=== PATIENT | male | born 1965 | race Two or more races ===

== ENCOUNTER 2020-02-04 21:24 | Inpatient (IN) | payer MEDICARE, OTHER ==
[~2020-02-04] VITALS: Ht 185.4 cm; Wt 79.4 kg
--- NOTE | 2020-02-04 22:10 | NUR ---
KITCHEN AIDE NOTES, RECEIVED DIRECT ADMIT PATIENT FROM [facility] UNDER MEDICAL SERVICES OF DR WADE AND TINY WITH ADMITTING DX PSYCHOSIS NOS, HE STATES HE IS BIPOLAR AND DENIES ANY ADDITIONAL MEDICAL CONDITION, ON 5150 HOLD 72 HRS FOR GRAVELY DISABLE, PATIENT DENIES SUICIDAL THOUGH, SUICIDAL IDEATION OR THOUGHTS OF HARMING SELF AT THIS TIME, A/O X4, VERBAL RESPONSIVE, BREATHING EVEN AND UNLABORED, NO S/S OF ANY SOB/ACUTE DISTRESS NOTED AT THIS TIME NO DISRUPTIVE BEHAVIOR EXHIBITED, CALM AND COOPERATIVE WITH CARE, AT RA, SKIN INTACT, AFEBRILE AT THIS TIME, NO SHARP OR COMPROMISED ITEMS IN ROOM, CONTRABAND CHECK DONE, WILL CONTINUE TO MONITOR CLOSELY.
--- NOTE | 2020-02-04 22:10 | NUR ---
RN NOTES, VS UPON ADMISSION 97.6, 71, 95% RA, 18, 114/58, BLOOD SUGAR 94MG/DL, AFEBRILE, NO S/S OF SOB, PAIN OR ANY ACUTE DISTRESS NOTED, DENIES PAIN AND DISCOMFORT.
[2020-02-04] MEDS ORDERED: BLOOD SUGAR DIAGNOSTIC 1 EACH STRIP IN ONE (22:30)
[2020-02-04] MEDS ORDERED: MAGNESIUM HYDROXIDE 30 ML UDC PO PRN (22:30)
[2020-02-04] MEDS: TEMAZEPAM 7.5 MG CAPSULE PO PRN (23:10)
[2020-02-05 00:21] VITALS: BP 114/58
--- NOTE | 2020-02-05 06:41 | NUR ---
RN NOTES, NO SIGNIFICANTS CHANGE IN CONDITION, PATIENT COMPLIAN WITH CARE, NO DISRRUPTIVE BEHAVIOR EXHIBITED, WILL CONTINUE TO MAINTOP CLOSELY.
[2020-02-05 08:00] VITALS: BP 134/95
[2020-02-05 08:01] LABS: ALBUMIN 3.4 g/dL (3.4-5.0); BILIRUBIN,TOTAL 0.3 mg/dL (0.2-1.0); CALCIUM, SERUM 8.6 mg/dL (8.5-10.1); CHOLESTEROL 114 mg/dL (<200); CREATININE 0.8 mg/dL (0.6-1.3); HDL CHOLESTEROL 39 mg/dL (40-60); LDL 74 mg/dL (0-99); TOTAL PROTEIN, SERUM 6.7 g/dL (6.4-8.2); TRIGLYCERIDES 36 mg/dL (30-150)
[2020-02-05] MEDS: LORAZEPAM 0.5 MG TABLET PO PRN ×2 (08:13→16:22)
[2020-02-05] MEDS: risperiDONE 1 MG TABLET PO SCH ×2 (10:10→21:05)
[2020-02-05] MEDS: GABAPENTIN 100 MG CAPSULE PO SCH ×2 (12:30→16:22)
--- NOTE | 2020-02-05 15:33 | NUR ---
Individual Counseling: Goal: Patient will meet with SW today at 1:00 pm for individual counseling. Intervention: SW facilitated counseling session with patient regarding Positive Coping Mechanisms. SW explored what positive coping mechanisms the pt. has used in the past. SW commended patient for being vulnerable and informed him that crying is a positive coping mechanism. SW educated patient on Self-Soothing Techniques, Daily Affirmations, and Mindfulness. Response: Patient was agreeable to participating in individual counseling session. The patient was alert, pleasant, made proper eye contact and remained cooperative throughout counseling session. The patient stated in the past he has negatively coped with his problems by drinking. Pt. stated a positive coping mechanism he has used in the past is venting by talking to his parents over the phone and he enjoys reading. Pt. became tearful when discussing his relationship with his parents. Patient stated that he is willing to try mindfulness breathing exercise as a grounding technique in the future.
[2020-02-05 16:00] VITALS: BP 125/75
[2020-02-05] MEDS: ACETAMINOPHEN 325 MG TABLET PO PRN (19:32)
--- NOTE | 2020-02-05 19:33 | NUR ---
GPS-RN NOTE: C/O HEADACHE PATIENT C/O HEADACHE ON A PAIN SCALE OF 3/10. ADMINISTERED ACETAMINOPHEN 650MG PO ORDERED. WILL CONTINUE TO MONITOR.
[2020-02-05 20:07] VITALS: BP 129/72
[2020-02-05] MEDS: TEMAZEPAM 7.5 MG CAPSULE PO PRN (21:41)
[2020-02-06] MEDS: ACETAMINOPHEN 325 MG TABLET PO PRN (05:38)
[2020-02-06 06:25] LABS: BASOPHILS # (AUTO) 0.1 /CMM (0.0-0.2); BASOPHILS % (AUTO) 1.1 % (0.0-2.0); EOSINOPHILS % (AUTO) 4.5 % (0.0-6.0); HEMATOCRIT 43 % (39-51); HEMOGLOBIN 14.6 g/dL (13.5-17.5); LYMPHOCYTES # (AUTO) 1.8 /CMM (0.8-4.8); LYMPHOCYTES % (AUTO) 25.2 % (20.0-44.0); MEAN CORPUSCULAR HGB CONC 34 g/dl (31.0-36.0); MEAN CORPUSCULAR VOLUME 94 fL (80-96); MONOCYTES # (AUTO) 0.8 /CMM (0.1-1.30); MONOCYTES % (AUTO) 10.9 % (2.0-12.0); NEUTROPHILS # (AUTO) 4.2 /CMM (1.8-8.9); NEUTROPHILS % (AUTO) 58.3 % (43.0-81.0); PLATELET COUNT (AUTO) 310 /CMM (150-450); RED BLOOD CELL COUNT(AUTO) 4.59 MIL/uL (4.5-6.0); WHITE BLOOD COUNT (AUTO) 7.2 K/uL (4.3-11.0)
[2020-02-06 08:00] VITALS: BP 136/87
[2020-02-06] MEDS: GABAPENTIN 100 MG CAPSULE PO SCH ×3 (08:20→16:08)
[2020-02-06] MEDS: risperiDONE 1 MG TABLET PO SCH ×2 (08:20→21:02)
[2020-02-06] MEDS: LORAZEPAM 0.5 MG TABLET PO PRN (09:52)
--- NOTE | 2020-02-06 09:54 | NUR ---
GPS/RN-NOTES PATIENT C/O ANXIETY AND SHACKING DR. FRANKS IN THE UNIT AND AWARE. ATIVAN 0.5MG P.O GIVEN PRN ORDER. WILL CONT. MONITORING FOR SAFETY AND BEHAVIOR.
--- NOTE | 2020-02-06 10:20 | NUR ---
GPS/RN-NOTES PATIENT IN THE ROOM CALM,NO ACUTE DISTRESS NOTED.
[2020-02-06] MEDS: BENZTROPINE MESYLATE (1 MG) 1 MG TABLET PO SCH ×2 (11:12→16:08)
--- NOTE | 2020-02-06 12:30 | NUR ---
FAMILY CONTACT: SW contacted pts mother Kaye ([phone]) and left a voicemail for call back to discuss pts discharge and treatment plan.
--- NOTE | 2020-02-06 12:47 | NUR ---
INITIAL DISCHARGE PLAN: Pt may need placement. Pt states he wishes to go to a sober living in [place], [place]. YEIMI will help form a safe and proper discharge in collaboration with .
--- NOTE | 2020-02-06 14:23 | NUR ---
SUBSTANCE ABUSE INTERVENTION: SW conducted substance abuse intervention and discussed pts alcohol abuse. Per pt, he has been sober for 10 years and drank 2 days ago due to the coronavirus. Pt refused substance abuse referrals and stated being in the hospital is like being in treatment. Pt stated he wishes to be discharged to a sober living facility.
--- NOTE | 2020-02-06 14:30 | NUR ---
Dr. De León made aware that pt. with MRSA on logan and with order.
--- NOTE | 2020-02-06 14:59 | NUR ---
FAMILY CONTACT: SW received a call from pts mother Kaye ([phone]) who provided SW with collateral information. Mom states that pt is currently homeless juan to his alcohol abuse. Mother states that pt has not been sober for 10 years and states that pt had been drinking 6 (40oz) beers a day and blacking out. She states that pt needs inpatient treatment but knows that pt is in denial and does not admit to his alcohol abuse. Mother states that pt is not able to return to her home and states that pt needs a sober living. YEIMI will help form a safe and proper discharge in collaboration with .
--- NOTE | 2020-02-06 15:51 | NUR ---
FAMILY CONTACT: SW received a call from pts mother Kaye ([phone]) to provide SW with the name and furniture salesperson for a [facility] [phone].
[2020-02-06 16:00] VITALS: BP 131/79
--- NOTE | 2020-02-06 16:01 | NUR ---
SOBER LIVING: YEIMI contacted Candy, academic administrator at [facility] [phone]. Who stated she will accept pt. She stated that she has 2 beds available and states that she wishes to speak to pt regarding his sobriety and rules. YEIMI stated that she will provide pt with her contact number.
--- NOTE | 2020-02-06 16:20 | NUR ---
INDIVIDUAL MEETING: YEIMI provided pt with contact information for Candy, nursing home administrator at [facility] [phone]. YEIMI prompted pt to call Candy to reserve a bed.
[2020-02-06] MEDS: MAG HYDROX/AL HYDROX/SIMETH 30 ML UDC PO PRN (19:50)
--- NOTE | 2020-02-06 19:51 | NUR ---
GPS-RN NOTE: MAALOX 30ML PO GIVEN FOR INDIGESTION. WILL CONTINUE TO MONITOR.
[2020-02-06 20:42] VITALS: BP 131/66
[2020-02-06 20:48] VITALS: BP 130/81
[2020-02-06] MEDS: MUPIROCIN OINT 2% 22 GM TUBE SCH (21:31)
[2020-02-06] MEDS: TEMAZEPAM 7.5 MG CAPSULE PO PRN (22:46)
--- NOTE | 2020-02-06 22:46 | NUR ---
GPS-RN NOTE: INSOMNIA PATIENT C/O INABILITY TO SLEEP. ADMINISTERED RESTORIL 7.5MG PO ORDERED PER PT'S REQUEST. WILL CONTINUE TO MONITOR FOR PATIENT'S SAFETY.
[2020-02-07 08:00] VITALS: BP 115/72
[2020-02-07] MEDS: MUPIROCIN OINT 2% 22 GM TUBE SCH ×2 (08:50→21:46)
[2020-02-07] MEDS: risperiDONE 1 MG TABLET PO SCH ×3 (09:00→17:33)
[2020-02-07] MEDS: GABAPENTIN 100 MG CAPSULE PO SCH ×3 (09:00→17:33)
[2020-02-07] MEDS: BENZTROPINE MESYLATE (1 MG) 1 MG TABLET PO SCH ×3 (09:00→17:33)
--- NOTE | 2020-02-07 09:07 | NUR ---
FAMILY CONTACT: SW received a call from pts mother Kaye ([phone]) stating that pt has informed her that he will be discharged on this present day, SW informed her that pt began refusing medication this morning and is currently not stable for discharge per MD's notes. SW explained legal hold process and also explained that MD may file for a medication capacity hearing if pt continues to refuse psychiatric medication. Mother stated that pt also called the sober living facility yesterday and stated the staffing administrator hung up the phone on him because pt is currently in the hospital. SW informed her that SW contacted the staffing administrator and informed her pt is currently hospitalized and stated that pt perhaps did not identify himself properly. Mother states that she believes pt was not able to communicate well with the staffing administrator and asked SW for assistance. SW stated that once pt is stable and ready for discharge SW will assist pt with making the phone call. Mother agreed and requested SW provide her updates as needed.
--- NOTE | 2020-02-07 09:07 | NUR ---
GPS/RN-NOTES PATIENT REFUSED ALL P.O MEDICATIONS DESPITE EXPLANATIONS RISK AND BENEFITS. STATED" I DON'T WANT TO TAKE MEDICATIONS TODAY,IT MAKE ME SICK", OFFERED X3.
--- NOTE | 2020-02-07 10:45 | NUR ---
GPS/RN-NOTES DR. FRANKS IN THE UNIT AND MADE AWARE OF PATIENT MEDICATION REFUSAL.
[2020-02-07] MEDS: LORAZEPAM 0.5 MG TABLET PO PRN (11:24)
--- NOTE | 2020-02-07 11:28 | NUR ---
GPS/RN-NOTES NOTED PATIENT ANGRY AND CURSING AT STAFF. ATIVAN OFFERED AND AGREED . ATIVAN 0.5MG P.O GIVEN PRN ORDER. WILL CONT. MONITORING FOR SAFETY AND BEHAVIOR.
--- NOTE | 2020-02-07 12:30 | NUR ---
GPS/RN-NOTES PATIENT IN THE ROOM SITTING IN BED, CALM,NO ACUTE DISTRESS NOTED.
[2020-02-07 16:00] VITALS: BP 128/83
[2020-02-07 20:49] VITALS: BP 112/71
[2020-02-08] MEDS: risperiDONE 1 MG TABLET PO SCH ×4 (07:43→20:08)
[2020-02-08] MEDS: ACETAMINOPHEN 325 MG TABLET PO PRN (07:43)
[2020-02-08 08:00] VITALS: BP 127/78
[2020-02-08] MEDS: GABAPENTIN 100 MG CAPSULE PO SCH ×3 (08:00→16:52)
[2020-02-08] MEDS: MUPIROCIN OINT 2% 22 GM TUBE SCH ×2 (08:00→21:12)
[2020-02-08] MEDS: BENZTROPINE MESYLATE (1 MG) 1 MG TABLET PO SCH ×4 (08:01→20:08)
[2020-02-08] MEDS: LORAZEPAM 0.5 MG TABLET PO PRN (08:55)
--- NOTE | 2020-02-08 08:55 | NUR ---
RN NOTE: PT ANXIOUS AND AGITATED. YELLING INTO PHONE. UNABLE TO BE REDIRECTED. TREMORS AND HYPERVERBAL. MEDICATED WITH ATIVAN. 0.5 MG PO FOR ANXIETY AND AGITATION
[2020-02-08 16:00] VITALS: BP 141/85
[2020-02-08 20:00] VITALS: BP 135/93
[2020-02-08] MEDS: MAG HYDROX/AL HYDROX/SIMETH 30 ML UDC PO PRN (20:50)
--- NOTE | 2020-02-08 20:50 | NUR ---
GPS RN NOTE: INDIGESTION PT. C/O INDIGESTION. ADMINISTERED MAALOX 30 ML PRN ORDERED. WILL CONTINUE TO MONITOR FOR SAFETY AND BEHAVIOR.
[2020-02-08] MEDS: TEMAZEPAM 7.5 MG CAPSULE PO PRN (22:44)
--- NOTE | 2020-02-08 22:44 | NUR ---
GPS RN NOTE; INSOMNIA PT. C/O UNABLE TO SLEEP AND REQUESTED SLEEPING PILL. ADMINISTERED RESTORIL 7.5 MG PO PRN ORDERED. WILL CONTINUE TO MONITOR FOR SAFETY AND BEHAVIOR
[2020-02-09 08:00] VITALS: BP 139/88
[2020-02-09] MEDS: GABAPENTIN 100 MG CAPSULE PO SCH ×3 (08:33→16:30)
[2020-02-09] MEDS: BENZTROPINE MESYLATE (1 MG) 1 MG TABLET PO SCH ×4 (08:33→19:38)
[2020-02-09] MEDS: risperiDONE 1 MG TABLET PO SCH ×4 (08:33→19:39)
[2020-02-09] MEDS: MUPIROCIN OINT 2% 22 GM TUBE SCH ×2 (08:36→21:15)
[2020-02-09] MEDS: ACETAMINOPHEN 325 MG TABLET PO PRN (12:08)
--- NOTE | 2020-02-09 12:08 | NUR ---
RN NOTE: PT C/O 01/02 HEADACHE. MEDICATED WITH TYLENOL PO PRN.
[2020-02-09 16:00] VITALS: BP 136/95
[2020-02-09 20:52] VITALS: BP 127/66
[2020-02-09] MEDS: TEMAZEPAM 7.5 MG CAPSULE PO PRN (21:57)
--- NOTE | 2020-02-09 21:57 | NUR ---
GPS RN NOTE: INSOMNIA PT. C/O UNABLE TO SLEEP AND REQUESTED SLEEPING PILL. ADMINISTERED RESTORIL 7.5 MG PO PRN ORDERED. WILL CONTINUE TO MONITOR FOR SAFETY AND BEHAVIOR
[2020-02-10] MEDS: ACETAMINOPHEN 325 MG TABLET PO PRN ×2 (05:12→14:26)
--- NOTE | 2020-02-10 05:12 | NUR ---
GPS RN NOTE: PAIN PT. C/O OF HEADACHE AND REQUESTED FOR TYLENOL. ADMINISTERED TYLENOL 650 MG PO PRN ORDERED. WILL CONTINUE TO MONITOR FOR SAFETY AND BEHAVIOR
[2020-02-10 08:00] VITALS: BP 132/79
[2020-02-10] MEDS: GABAPENTIN 100 MG CAPSULE PO SCH ×3 (08:09→16:18)
[2020-02-10] MEDS: risperiDONE 1 MG TABLET PO SCH ×4 (08:10→20:35)
[2020-02-10] MEDS: BENZTROPINE MESYLATE (1 MG) 1 MG TABLET PO SCH ×4 (08:10→20:35)
[2020-02-10] MEDS: MUPIROCIN OINT 2% 22 GM TUBE SCH ×2 (08:12→21:02)
[2020-02-10] MEDS: LORAZEPAM 0.5 MG TABLET PO PRN (10:52)
--- NOTE | 2020-02-10 10:52 | NUR ---
RN NOTE: PT C/O INCREASED ANXIETY. REQUESTING ATIVAN PRN. MEDICATED WITH ATIVAN 0.5 MG PO PRN.
[2020-02-10] MEDS: MAG HYDROX/AL HYDROX/SIMETH 30 ML UDC PO PRN (11:09)
--- NOTE | 2020-02-10 14:02 | NUR ---
FAMILY CONTACT: SW received a call from pts mother Kaye ([phone]) requesting discharge information. SW informed her that MD has ordered discharge as soon as pt is accepted to a sober living. Mother provided SW with another contact number for [facility] ([phone]) and stated that pt is able to transport himself via pubic transportation if needed.
--- NOTE | 2020-02-10 14:12 | NUR ---
SOBER LIVING: YEIMI contacted Pee, telecommunications administrator at [facility] ([phone]) and left a voicemail for callback.
--- NOTE | 2020-02-10 14:16 | NUR ---
[facility]: YEIMI contacted Candy, cognos bi administrator at [facility] [phone] who stated she would contact her unix manager to see if there is still a bed available for pt, she will return call to YEIMI. Addendum: 02/10/20 at 1501 by MAYA JALLOH YEIMI received a call from Candy, who provided YEIMI with her managers contact information; Arnoldo [phone]. YEIMI called and left a voicemail for callback.
--- NOTE | 2020-02-10 14:26 | NUR ---
RN NOTE: PT C/O 12/02 OLIVE. REQUESTING TYLENOL. TYLENOL 650MIG PO ADMINISTERED.
--- NOTE | 2020-02-10 14:31 | NUR ---
Individual Counseling: This SW met with pt. at bedside to facilitate therapeutic milieu regarding patient's support system. The patient was receptive to meeting with SW. Per patient, his parents, Kaye and Margarito are very involved and supportive. Per patient, he is in communication with them. The patient discussed stressors that have affected his relationships. SW used reflective listening, and validation and discussed communication styles. Patient expressed he is well supported and looking forward to working on his relationships and also discharging to sober living facility. Patient will be invited to participate in future counseling session.
--- NOTE | 2020-02-10 15:02 | NUR ---
SOBER LIVING: SW contacted [facility] and spike with Lisandra [phone] who stated they require a 30 day sobriety for admission.
--- NOTE | 2020-02-10 15:22 | NUR ---
INDIVIDUAL MEETING: SW met with pt to inform him SW is attempting to find a bed for him at various sober livings. Pt stated that if SW is unable to find a place for him he wishes to be discharged to the streets and he will figure out where to go from there. SW stated that she will try to find a bed for him by tomorrow and pt agreed. Pt refused SNF placement.
[2020-02-10 16:00] VITALS: BP 133/84
--- NOTE | 2020-02-10 16:20 | NUR ---
SOBER LIVING: YEIMI received a call from Arnoldo, it infrastructure manager at [facility] [address] [place] [address] P: [phone] stating a bed has been reserved for pt. YEIMI facilitated over the phone interview with Arnoldo and pt. Pt accepted terms and conditions of house and will be discharged tomorrow 02/11/20 via public transportation.
--- NOTE | 2020-02-10 16:22 | NUR ---
FAMILY CONTACT: SW contacted pts mother Kaye ([phone]) to inform her pt will be discharging tomorrow to [facility] [address] [place] [address] P: [phone] via public transportation. Mother agreed to discharge plan.
[2020-02-10 20:15] VITALS: BP 149/90
[2020-02-10] MEDS: TEMAZEPAM 7.5 MG CAPSULE PO PRN (21:29)
--- NOTE | 2020-02-10 21:29 | NUR ---
GPS-RN NOTE: INSOMNIA PATIENT C/O INABILITY TO SLEEP. ADMINISTERED RESTORIL 7.5MG PO ORDERED PER PT'S REQUEST. WILL CONTINUE TO MONITOR FOR PATIENT'S SAFETY.
[2020-02-11] MEDS: ACETAMINOPHEN 325 MG TABLET PO PRN (06:21)
--- NOTE | 2020-02-11 06:23 | NUR ---
GPS-RN NOTE: C/O HEADACHE PATIENT C/O HEADACHE ON A PAIN SCALE OF 3/10. REQUESTED TYLENOL PRN. MEDICATED TYLENOL 650MG PO ORDERED. WILL CONTINUE TO MONITOR.
[2020-02-11] MEDS: BENZTROPINE MESYLATE (1 MG) 1 MG TABLET PO SCH (07:59)
[2020-02-11] MEDS: risperiDONE 1 MG TABLET PO SCH (07:59)
[2020-02-11 08:00] VITALS: BP 128/86
[2020-02-11] MEDS: GABAPENTIN 100 MG CAPSULE PO SCH (08:00)
[2020-02-11] MEDS: MUPIROCIN OINT 2% 22 GM TUBE SCH (09:25)
--- NOTE | 2020-02-11 10:15 | NUR ---
SKIMMER REVERBERATORY NOTE: 54 YEAR OLD MALE DISCHARE TO [facility] VIA PUBLIC TRANSPORTATION IN STABLE CONDITION. PT COMPLIANT WITH MEDICATIONS, COOPERATIVE WITH TREATMENT PLAN. PATIENT DENIES SI/HI AND INSTRUCTED TO GO TO THE CLOSEST ER IF DEVELOPING SI/HI. BEHAVIOR IMPROVED, PSYCHIATRIC TREATMENT PLANS MET, MEDICAL TREATMENT PLANS DEFERRED FOR CONTINUAL MONITORING. EDUCTED PT ABOUT AFTER CARE PLAN AND COPY PROVIDED. RETURNED PERSONAL BELONGINGS TO PATIENT. PRESCRIPTIONS CALLED TO LOCAL [facility]. MEDICATIONS RECONCILED WITH DR. POWERS AND DR FRANKS. PATIENT SIGNED DISCHARGE PAPERWORK. SKIN INTACT ON ADMIT AND DISCHARGE. PATIENT ID BAND REMOVED. PT EXICTED THE UNIT VIA AMBULATION AT 10:15
--- NOTE | 2020-02-11 10:47 | NUR ---
DISCHARGE NOTE: Pt was discharged via public transportation at 10:30am to [facility] [address] [place] [address] P: [phone]. Pts mother Kaye ([phone]) has been notified and agreed to discharge plan. Pts mood is euthymic with congruent affect. Pt denied visual/auditory hallucinations and denied suicidal/homicidal ideation. Pt will be following up with Psychiatrist: Dr. Vernon Nicholson Address: [address] [place] [address] on Monday02/14/20 at 10:00am and [employer] Web Developer: [facility] Address: [address] [place] [address] . Patient was provided referrals to address his alcohol use. Patient was referred to [facility] : [facility] Address: [address] [place] [address] . Pt also received homeless resources. The multidisciplinary exit care form was done, printed, signed, and given to the patient.
== END 2020-02-11 10:15 | disposition home or self-care (01) | DRG 885 ==
LOC: GPS 21:26
PROVIDERS: ADMIT Psychiatry & Neurology Psychosomatic Medicine
DX: F31.9 Bipolar disorder, unspecified (principal); Z87.891 Personal history of nicotine dependence; R73.9 Hyperglycemia, unspecified; F09 Unspecified mental disorder due to known physiological condition; F10.10 Alcohol abuse, uncomplicated; Z91.14 Patient's other noncompliance with medication regimen; F81.9 Developmental disorder of scholastic skills, unspecified; G47.00 Insomnia, unspecified
CPT/HCPCS: 36415; 80053-TC; 80061-TC; 82962-TC; 84443-TC; 85025-TC; 87081-TC

== ENCOUNTER 2025-01-14 18:47 | Inpatient (IN) | payer MEDICARE, OTHER ==
[~2025-01-14] VITALS: Ht 182.9 cm; Wt 94.8 kg
[2025-01-14 19:41] LABS: BASOPHILS # (AUTO) 0.1 K/uL (0.0-0.2); BASOPHILS % (AUTO) 0.6 % (0.0-2.0); EOSINOPHILS # (AUTO) 0.3 K/uL (0.0-0.7); EOSINOPHILS % (AUTO) 3.7 % (0.0-6.0); HEMATOCRIT 45 % (39-51); HEMOGLOBIN 14.9 g/dL (13.5-17.5); LYMPHOCYTES # (AUTO) 2.5 K/uL (0.8-4.8); LYMPHOCYTES % (AUTO) 29.6 % (20.0-44.0); MEAN CORPUSCULAR HEMOGLOBIN 29 PG (26.0-33.0); MEAN CORPUSCULAR HGB CONC 33 g/dl (31.0-36.0); MEAN CORPUSCULAR VOLUME 88 fL (80-96); MONOCYTES # (AUTO) 0.8 K/uL (0.1-1.30); NEUTROPHILS # (AUTO) 4.8 K/uL (1.8-8.9); NEUTROPHILS % (AUTO) 57.1 % (43.0-81.0); PLATELET COUNT (AUTO) 216 K/uL (150-450); RED BLOOD CELL COUNT(AUTO) 5.07 MIL/uL (4.5-6.0); RED CELL DISTRIBUTION WIDTH 13.5 % (11.5-15.0); WHITE BLOOD COUNT (AUTO) 8.5 K/uL (4.3-11.0)
[2025-01-14 19:58] LABS: CALCIUM, SERUM 9.8 mg/dL (8.5-10.1); CARBON DIOXIDE 26 mmol/L (21-32); CHLORIDE 102 mmol/L (98-107); CREATININE 0.8 mg/dL (0.6-1.3); GLUCOSE 96 mg/dL (74-106); SODIUM SERUM 137 mmol/L (136-145); UREA NITROGEN, BLOOD 13 mg/dL (7-18)
[2025-01-14 20:05] LABS: ACETAMINOPHEN 0 ug/ml (10-30); ALANINE AMINOTRANSFERASE 27 U/L (12-78); ALBUMIN 3.8 g/dL (3.4-5.0); ALCOHOL, BLOOD < 3 mg/dL (0-10); ALKALINE PHOSPHATASE 69 U/L (46-116); ASPARTATE AMINOTRANSFERASE 13 U/L (15-37); BILIRUBIN,DIRECT 0.1 mg/dL (0.0-0.2); BILIRUBIN,TOTAL 0.3 mg/dL (0.2-1.0); SALICYLATE 1.4 mg/dL (2.8-20.0); TOTAL PROTEIN, SERUM 7.5 g/dL (6.4-8.2)
[2025-01-14 20:41] LABS: APPEARANCE,URINE CLEAR (CLEAR); BILIRUBIN,URINE NEGATIVE (NEGATIVE); BLOOD, URINE NEGATIVE Ery/uL (NEGATIVE); COLOR,URINE YELLOW (YELLOW); KETONES,URINE NEGATIVE (NEGATIVE); LEUKOCYTE ESTERASE ,URINE NEGATIVE (NEGATIVE); NITRITE, URINE NEGATIVE (NEGATIVE); PH,URINE 6.5 (5.0-8.0); PROTEIN,URINE NEGATIVE (NEGATIVE); UGLUCOSE NEGATIVE (NEGATIVE); UROBILINOGEN,URINE 0.2 EU/dL (0.2)
[2025-01-14 20:58] LABS: AMPHETAMINE, URINE NEGATIVE (NEGATIVE); BARBITURATE, URINE NEGATIVE (NEGATIVE); BENZODIAZEPINE, URINE NEGATIVE (NEGATIVE); CANNABINOID, URINE NEGATIVE (NEGATIVE); COCCAINE, URINE NEGATIVE (NEGATIVE); OPIATE, URINE NEGATIVE (NEGATIVE); PHENCYCLIDINE SCREEN,URINE NEGATIVE (NEGATIVE)
[2025-01-14 23:00] VITALS: O2SAT 98
[2025-01-15 03:58] VITALS: BP 120/91; TEMP 97.7; O2SAT 95
[2025-01-15] MEDS ORDERED: LORAZEPAM 0.5 MG TABLET PO PRN (04:00)
[2025-01-15] MEDS ORDERED: MAGNESIUM HYDROXIDE 30 ML UDC PO PRN (04:00)
[2025-01-15] MEDS: BLOOD SUGAR DIAGNOSTIC 1 EACH STRIP IN ONE (04:09)
[2025-01-15] MEDS ORDERED: DOCU100C36 PO (06:06)
[2025-01-15] MEDS ORDERED: BISA10SU61 RC (06:06)
[2025-01-15] MEDS ORDERED: SERT50TA PO (06:06)
[2025-01-15] MEDS ORDERED: MELO-105 PO (06:06)
[2025-01-15] MEDS ORDERED: GABA300C PO (06:06)
[2025-01-15] MEDS ORDERED: NA P133E RC (06:06)
[2025-01-15] MEDS ORDERED: OLAN10TA6 PO (06:06)
[2025-01-15] MEDS ORDERED: METH-649 PO (06:06)
[2025-01-15 08:00] VITALS: BP 114/78; TEMP 98; O2SAT 97
[2025-01-15] MEDS ORDERED: OLAN5TAB6 PO (08:18)
[2025-01-15] MEDS ORDERED: ACET325T53 PO (08:18)
[2025-01-15] MEDS ORDERED: TEMA15CA PO (08:18)
[2025-01-15] MEDS ORDERED: MAGN400O6 PO (08:18)
[2025-01-15] MEDS ORDERED: LORA-259 PO (08:18)
[2025-01-15] MEDS ORDERED: ACET-637 PO (08:18)
[2025-01-15] MEDS ORDERED: ACET-73 PO (08:18)
[2025-01-15] MEDS ORDERED: METH500T6 PO (08:18)
[2025-01-15] MEDS: ACETAMINOPHEN 325 MG TABLET PO PRN (13:36)
[2025-01-15 16:00] VITALS: BP 111/79; TEMP 97.7; O2SAT 98
[2025-01-15] MEDS: GABAPENTIN 300 MG CAPSULE PO SCH (17:14)
[2025-01-15] MEDS: OLANZAPINE ZYDIS 5 MG TAB.RAPDIS PO SCH (20:06)
[2025-01-15 20:11] VITALS: BP 122/93; TEMP 98.5; O2SAT 98
[2025-01-15] MEDS: TEMAZEPAM 7.5 MG CAPSULE PO PRN (23:11)
[2025-01-16 08:00] VITALS: BP 90/61; TEMP 98; O2SAT 94
[2025-01-16] MEDS: DOCUSATE SODIUM 100 MG CAPSULE PO SCH (08:51)
[2025-01-16] MEDS: OLANZAPINE ZYDIS 5 MG TAB.RAPDIS SL SCH (08:51)
[2025-01-16] MEDS: MAG HYDROX/AL HYDROX/SIMETH 30 ML UDC PO PRN (09:28)
[2025-01-16 10:40] LABS: ALBUMIN 3.5 g/dL (3.4-5.0); BILIRUBIN,TOTAL 0.5 mg/dL (0.2-1.0); CALCIUM, SERUM 9.3 mg/dL (8.5-10.1); CREATININE 0.7 mg/dL (0.6-1.3); POTASSIUM 3.9 mmol/L (3.5-5.1)
[2025-01-16 12:43] LABS: CHOLESTEROL 206 mg/dL (<200); HDL CHOLESTEROL 34 mg/dL (40-60); LDL 147 mg/dL (0-99); TRIGLYCERIDES 104 mg/dL (30-150)
[2025-01-16] MEDS ORDERED: GADOTERATE MEGLUMINE 10 MMOL/20 ML VIAL IV ONE (14:01)
[2025-01-16 16:00] VITALS: BP 93/71; TEMP 97.7; O2SAT 96
[2025-01-16] MEDS ORDERED: NYSTATIN/TRIAMCIN CREAM 15 GM TUBE TP SCH (17:00)
[2025-01-16 20:00] VITALS: BP 116/89; TEMP 98.2; O2SAT 96
[2025-01-17 08:00] VITALS: BP 129/84; TEMP 97.9; O2SAT 96
[2025-01-17 16:00] VITALS: BP 110/78; TEMP 97.9; O2SAT 98
[2025-01-17 20:12] VITALS: BP 112/70; TEMP 98.1; O2SAT 95
[2025-01-18 08:00] VITALS: BP 115/94; TEMP 97.8; O2SAT 98
[2025-01-18] MEDS: METHOCARBAMOL (500MG) 500 MG TABLET PO PRN (08:39)
[2025-01-18 16:00] VITALS: BP 120/90; TEMP 98.7; O2SAT 100
[2025-01-18 20:10] VITALS: BP 115/77; TEMP 98.6; O2SAT 100
[2025-01-18] MEDS: LORAZEPAM 0.5 MG TABLET PO PRN (21:39)
[2025-01-19 08:00] VITALS: BP_SYST 121; BP_SYST 156; BP_DIAS 83; BP_DIAS 99; TEMP 97.8; TEMP 97.9; O2SAT 95; O2SAT 97
[2025-01-19 16:00] VITALS: BP 115/75; TEMP 97.9; O2SAT 96
[2025-01-19 21:05] VITALS: BP 120/87; TEMP 97.9; O2SAT 97
[2025-01-20 07:35] LABS: INR 1.08 (0.91-1.10); PROTHROMBIN TIME 11.4 SECS (9.2-11.1)
[2025-01-20 08:00] VITALS: BP 100/60; TEMP 97.8; O2SAT 97
[2025-01-20 16:00] VITALS: BP 135/85; TEMP 98.1; O2SAT 98
[2025-01-20 20:09] VITALS: BP 133/105; TEMP 98; O2SAT 98
[2025-01-21 08:00] VITALS: BP 107/70; TEMP 97.8; O2SAT 97
[2025-01-21] MEDS: BACITRACIN ZINC OINT (15 GM) 15 GM TUBE TP SCH (12:49)
[2025-01-21 16:00] VITALS: BP 122/85; TEMP 97.8; O2SAT 95
[2025-01-21] MEDS: OLANZAPINE ZYDIS 5 MG TAB.RAPDIS PO SCH (16:07)
[2025-01-21 20:02] VITALS: BP 112/84; TEMP 97.8; O2SAT 97
[2025-01-22 08:00] VITALS: BP 120/80; TEMP 98.7; O2SAT 99
[2025-01-22 16:00] VITALS: BP 109/76; TEMP 98.7; O2SAT 96
[2025-01-22 20:01] VITALS: BP 120/89; TEMP 97.7; O2SAT 100
[2025-01-23 08:00] VITALS: BP 99/63; TEMP 97.7; O2SAT 96
[2025-01-23 16:00] VITALS: BP 109/82; TEMP 98.8; O2SAT 98
[2025-01-23 20:00] VITALS: BP 128/89; TEMP 97.7; O2SAT 100
[2025-01-23 20:17] VITALS: BP 128/89; TEMP 97.7
[2025-01-24 08:00] VITALS: BP 126/93; TEMP 97.9; O2SAT 95
== END 2025-01-24 12:10 | DRG 885 ==
LOC: ER 19:04 → GPS 01-15 03:07 → UNDODISIN 01-20 11:52 → GPS 01-23 19:46
PROVIDERS: ADMIT Psychiatry & Neurology Psychiatry; ATTEND Nurse Practitioner Acute Care
DX: F20.0 Paranoid schizophrenia (principal); R45.851 Suicidal ideations; F31.9 Bipolar disorder, unspecified; R26.89 Other abnormalities of gait and mobility; F41.1 Generalized anxiety disorder; R45.850 Homicidal ideations; Z87.891 Personal history of nicotine dependence; F10.20 Alcohol dependence, uncomplicated; G62.9 Polyneuropathy, unspecified; I10 Essential (primary) hypertension; M15.9 Polyosteoarthritis, unspecified; D18.01 Hemangioma of skin and subcutaneous tissue
CPT/HCPCS: 36415; 73220-TC; 80048-TC; 80053-TC; 80061-TC; 80076-TC; 82962-TC; 85025-TC; 85610-TC; 87081-TC; 88305-TC; A9575; G0480

== ENCOUNTER → 2025-01-20 | Day surgery (SDC) | payer MEDICARE, OTHER ==
[~2025-01-20] MED LIST: ACET-637 PO; ACET-73 PO; ACET325T53 PO; BACITRACIN ZINC OINT (15 GM) 15 GM TUBE TP ONE; BISA10SU61 RC; DOCU100C36 PO; GABA300C PO; LIDOCAINE 2%-EPI 1:100,000 30 ML VIAL ONE; LORA-259 PO; MAGN400O6 PO; MELO-105 PO; METH500T6 PO; NA P133E RC; OLAN10TA6 PO; OLAN5TAB6 PO; SERT50TA PO; TEMA15CA PO
== END | disposition home or self-care (01) ==
LOC: EDSTATUS 11:57 → DS 13:04
PROVIDERS: ATTEND Urology
DX: R22.31 Localized swelling, mass and lump, right upper limb (principal); D18.09 Hemangioma of other sites; F41.9 Anxiety disorder, unspecified; F32.9 Major depressive disorder, single episode, unspecified; Z87.891 Personal history of nicotine dependence; Z79.899 Other long term (current) drug therapy; Z98.890 Other specified postprocedural states; Z88.8 Allergy status to other drugs, medicaments and biological substances
CPT/HCPCS: 26111; 88305; J3490